=== PATIENT | female | born 1990 | race Caucasian/White ===

== ENCOUNTER 2018-09-18 09:51 | Emergency (ER) | payer SELFPAY ==
[~2018-09-18] VITALS: Ht 170.2 cm; Wt 59.1 kg
[2018-09-18 11:10] VITALS: BP 141/103
== END 2018-09-18 14:05 | disposition home or self-care (01) ==
LOC: EMS 09:52
DX: F41.9 Anxiety disorder, unspecified (principal); F31.9 Bipolar disorder, unspecified; F15.10 Other stimulant abuse, uncomplicated; Z59.0 Homelessness